=== PATIENT | male | born 1960 | race Caucasian/White ===

== ENCOUNTER 2021-02-17 13:30 | Observation (INO) | payer OTHER ==
[2021-02-17] MEDS ORDERED: Nitroglycerin 0.4 MG TAB (25 Tab Bottle) SL PRN (13:57)
[2021-02-17] MEDS ORDERED: Acetaminophen 325 MG TAB PO PRN (14:01)
[2021-02-17] MEDS ORDERED: Ondansetron ODT 4 MG TAB PO PRN (14:01)
[2021-02-17] MEDS ORDERED: Ondansetron PF 4 MG/2 ML Vial IVP PRN (14:01)
[2021-02-17 14:47] LABS: Magnesium 2.1 mg/dL (1.6-2.6)
[2021-02-17 14:49] LABS: Troponin I Less than 0.010 ng/mL (< 0.028)
[2021-02-17 15:42] VITALS: BMI 30.8
[2021-02-17 17:37] LABS: Troponin I Less than 0.010 ng/mL (< 0.028)
[2021-02-17 19:48] LABS: SARS-CoV-2 NAA Rapid Test Not Detected (NotDetected)
[2021-02-17] MEDS ORDERED: Famotidine 20 MG TAB PO SCH (21:00)
[2021-02-18 05:52] LABS: #Basophils 0.1 10x3/uL (0.0-0.2); #Eosinphils 0.2 10x3/uL (0.0-0.5); #Monocytes 0.8 10x3/uL (0.0-1.1); #Neutrophils 4.3 10x3/uL (1.5-8.4); %Basophils 0.7 % (0.0-2.0); %Eosinophils 2.9 % (0.0-6.0); %Lymphocytes 28.5 % (18.0-47.0); %Neutrophils 57.6 % (40.0-75.0); Hemoglobin 15.9 g/dL (13.5-17.5); Mean Corpuscular HGB CONC 33.9 g/dL (32.0-36.0); Mean Corpuscular Hemoglobin 30.8 pg (27.0-33.0); Mean Corpuscular Volume 90.7 fl (81.2-95.1); Mean Platelet Volume 9.5 fl (7.4-10.4); Platelet Count 194 10x3/uL (150-450); RBC Distribution Width 12.4 % (11.5-14.5); Red Blood Cell (RBC) Count 5.17 10x6/uL (4.32-5.72); White Blood Cell (WBC) Count 7.5 10x3/uL (3.5-10.5)
[2021-02-18 07:36] LABS: Anion Gap 11 mmol/L (10-20); BUN (Urea Nitrogen) 19 mg/dL (8.4-25.7); Calc. Creatinine Clearance 125 mL/min (70-130); Calcium 9.1 mg/dL (7.8-10.44); Carbon Dioxide 27 mmol/L (22-29); Chloride 106 mmol/L (98-107); Glucose 86 mg/dL (70-105); Potassium 4.2 mmol/L (3.5-5.1); Sodium 140 mmol/L (136-145)
[2021-02-18] MEDS ORDERED: Aspirin Chewable 81 MG TAB PO SCH (09:00)
[2021-02-18 12:32] VITALS: BP 121/69; TEMP 97.4
[2021-02-18] MEDS ORDERED: FLU VACC QS2021-22(6MOS UP)/PF 60 MCG/0.5 ML SYRINGE IM ONE (16:45)
== END 2021-02-18 18:00 | disposition home or self-care (01) ==
LOC: CSHERHOLD 13:30 → INTOOBSV 13:30 → CSHTELE 14:34
PROVIDERS: ADMIT Internal Medicine; ATTEND Nurse Practitioner Family
DX: R07.89 Other chest pain (principal); K21.9 Gastro-esophageal reflux disease without esophagitis; N40.0 Benign prostatic hyperplasia without lower urinary tract symptoms; Z79.899 Other long term (current) drug therapy; Z79.84 Long term (current) use of oral hypoglycemic drugs; J32.9 Chronic sinusitis, unspecified; Z20.822 Contact with and (suspected) exposure to COVID-19
CPT/HCPCS: 0240U; 36415; 80048; 83735; 84443; 85025; 93306; G0378

== ENCOUNTER 2021-02-24 08:59 | Emergency (ER) | payer OTHER ==
[2021-02-24 10:03] LABS: #Basophils 0.1 10x3/uL (0.0-0.2); #Eosinphils 0.1 10x3/uL (0.0-0.5); #Monocytes 0.6 10x3/uL (0.0-1.1); #Neutrophils 4.7 10x3/uL (1.5-8.4); %Basophils 0.9 % (0.0-2.0); %Eosinophils 2.1 % (0.0-6.0); %Lymphocytes 19.8 % (18.0-47.0); %Monocytes 8.7 % (0.0-10.0); %Neutrophils 68.2 % (40.0-75.0); Hemoglobin 16.8 g/dL (13.5-17.5); Mean Corpuscular HGB CONC 35.2 g/dL (32.0-36.0); Mean Corpuscular Hemoglobin 31.4 pg (27.0-33.0); Mean Corpuscular Volume 89.2 fl (81.2-95.1); Mean Platelet Volume 9.7 fl (7.4-10.4); Platelet Count 200 10x3/uL (150-450); RBC Distribution Width 12.5 % (11.5-14.5); Red Blood Cell (RBC) Count 5.35 10x6/uL (4.32-5.72); White Blood Cell (WBC) Count 6.8 10x3/uL (3.5-10.5)
[2021-02-24 10:05] LABS: ALT (SGPT) 28 U/L (8-55); AST (SGOT) 28 U/L (5-34); Albumin 4.5 g/dL (3.5-5.0); Alkaline Phosphatase 86 U/L (40-110); Anion Gap 13 mmol/L (10-20); BUN (Urea Nitrogen) 15 mg/dL (8.4-25.7); Bilirubin, Total 0.8 mg/dL (0.2-1.2); Calc. Creatinine Clearance 0 mL/min (70-130); Calcium 9.3 mg/dL (7.8-10.44); Carbon Dioxide 24 mmol/L (22-29); Chloride 106 mmol/L (98-107); Globulin 2.9 g/dL (2.4-3.5); Glucose 110 mg/dL (70-105); Potassium 4.3 mmol/L (3.5-5.1); Protein, Total 7.4 g/dL (6.0-8.3); Sodium 139 mmol/L (136-145)
== END 2021-02-24 11:20 | disposition home or self-care (01) ==
LOC: CSHERS 08:59
DX: R55 Syncope and collapse (principal); K21.9 Gastro-esophageal reflux disease without esophagitis; G47.30 Sleep apnea, unspecified; N40.0 Benign prostatic hyperplasia without lower urinary tract symptoms; Z79.84 Long term (current) use of oral hypoglycemic drugs; Z79.899 Other long term (current) drug therapy
CPT/HCPCS: 71045; 80053; 84443; 84484; 85025; 93005

== ENCOUNTER 2021-12-28 07:30 | Outpatient (CLI) | payer OTHER | END 2021-12-28 07:31 | disposition home or self-care (01) | LOC: CSHULT 07:30 | PROVIDERS: ATTEND Nurse Practitioner Family | DX: N20.0 Calculus of kidney (principal); K76.89 Other specified diseases of liver | CPT/HCPCS: 76700 ==